=== PATIENT | male | born 1960 | race Caucasian/White ===

== ENCOUNTER 2017-11-06 17:15 | Emergency (ER) | payer MEDICARE, MEDICAID ==
[~2017-11-06] VITALS: Ht 190.5 cm; Wt 106.6 kg
[2017-11-06 18:07] LABS: BASOPHILS # (AUTO) 0.1 X10'3 (0-0.2); BASOPHILS % (AUTO) 0.7 % (0-1); EOSINOPHILS # (AUTO) 0.1 X10'3 (0-0.9); EOSINOPHILS % (AUTO) 1.8 % (0-6); HEMATOCRIT 45.4 % (42.0-52.0); HEMOGLOBIN 15.6 g/dl (14.0-17.9); LYMPHOCYTES # (AUTO) 1.7 X10'3 (1.1-4.8); LYMPHOCYTES % (AUTO) 21.1 % (21-51); MEAN CORPUSCULAR HEMOGLOBIN 31.4 PG (27.0-31.0); MEAN CORPUSCULAR HGB CONC 34.4 % (33.0-36.5); MEAN CORPUSCULAR VOLUME 91.3 FL (78-98); MEAN PLATELET VOLUME 7.5 FL (7.4-10.4); MONOCYTES # (AUTO) 0.5 X10'3 (0-0.9); MONOCYTES % (AUTO) 5.9 % (2-12); NEUTROPHILS # (AUTO) 5.8 X10'3 (1.8-7.7); NEUTROPHILS % (AUTO) 70.5 % (42-75); PLATELET COUNT 220 X10'3 (140-440); RED BLOOD COUNT 4.98 X10'6 (4.70-6.10); RED CELL DISTRIBUTION WIDTH 13.4 % (11.5-14.5); WHITE BLOOD COUNT 8.2 X10'3 (4.5-11.0)
[2017-11-06 18:19] LABS: PROTHROMBIN TIME 10.6 SECONDS (9.0-12.0)
[2017-11-06 18:24] LABS: ALANINE AMINOTRANSFERASE 76 U/L (12-78); ALBUMIN 4.1 G/DL (3.4-5.0); ALBUMIN/GLOBULIN RATIO 0.8 (1.1-1.5); ALKALINE PHOSPHATASE 84 IU/L (46-116); ANION GAP 14 (8-16); ASPARTATE AMINO TRANSFERASE 92 U/L (10-37); BLOOD UREA NITROGEN 14 MG/DL (7-18); CALCIUM 9.7 MG/DL (8.5-10.1); CHLORIDE 104 MMOL/L (99-107); CREATININE 1.17 MG/DL (0.60-1.10); GLUCOSE 138 MG/DL (70-104); POTASSIUM 3.3 MMOL/L (3.5-5.1); SODIUM 141 MMOL/L (135-145); TOTAL CARBON DIOXIDE 23.3 MMOL/L (24-32); eGFR 64 ML/MIN
[2017-11-06 19:55] LABS: CLARITY,URINE CLEAR (Clear); COLOR,URINE AMBER (Yellow); GLUCOSE, URINE NEGATIVE (Neg); KETONES,URINE NEGATIVE (Neg); LEUKOCYTE ESTERASE ,URINE TRACE (Neg); NITRITES, URINE NEGATIVE (Neg); OCCULT BLOOD,URINE NEGATIVE (Neg); PROTEIN,URINE TRACE mg/dl (Neg); UROBILINOGEN,URINE 0.2 E.U/dL (0.2-1.0)
[2017-11-06 20:26] LABS: UA COLLECTION TYPE CLN CATCH MIDSTREAM
[2017-11-06 20:45] LABS: BACTERIA,URINE FEW /HPF (Neg); HYALINE CASTS 0-3 /LPF (NEGATIVE); MUCUS STRANDS MANY /LPF (Neg); RBC,URINE 0-2 /HPF (0-2); SQUAMOUS EPITHELIAL CELL,UR FEW /LPF (FEW); WBC,URINE 0-4 /HPF (0-4)
[2017-11-06] MEDS ORDERED: normal saline 1000ML IV soln IVB ONE ×2 (22:15→22:25)
[2017-11-06] MEDS ORDERED: ondansetron/PF 4mg/2ml inj IV ONE (22:25)
[2017-11-06] MEDS ORDERED: morphine 4 MG/ML inj SYRINge IV PRN (22:25)
[2017-11-06 22:31] LABS: LIPASE 154 U/L (73-393)
[2017-11-07] MEDS ORDERED: ONDA4TAB9 SL (00:54)
[2017-11-07 00:59] VITALS: BP 157/91
[2017-11-07 10:07] LABS: C DIFF ANTIGEN NEGATIVE (NEGATIVE); C DIFF SPECIMEN=DIARRHEA? ACCEPTABLE; C DIFFICILE TOXINS A&B NEGATIVE (Neg)
== END 2017-11-07 01:10 | disposition home or self-care (01) ==
LOC: ER 17:16
DX: R10.9 Unspecified abdominal pain (principal); I11.0 Hypertensive heart disease with heart failure; I50.9 Heart failure, unspecified
CPT/HCPCS: 36415; 74018; 80053; 81001; 83690; 85025; 85610; 87077; 87088; 87186; 87324; 87449; 96361; 96374; 96375; 99285; J2270; J2405; J7030

== ENCOUNTER 2021-05-10 11:31 | Day surgery (SDC) | payer MEDICARE, MEDICAID ==
[2021-05-08 10:29] LABS: BASOPHILS % (AUTO) 0.6 % (0-1); EOSINOPHILS # (AUTO) 0.1 X10'3 (0-0.9); LYMPHOCYTES # (AUTO) 0.7 X10'3 (1.1-4.8); LYMPHOCYTES % (AUTO) 8.1 % (21-51); MEAN CORPUSCULAR HEMOGLOBIN 34.5 PG (27.0-31.0); MEAN CORPUSCULAR HGB CONC 34.3 g/dL (33.0-36.5); MEAN CORPUSCULAR VOLUME 100.7 FL (78-98); MEAN PLATELET VOLUME 7.8 FL (7.4-10.4); MONOCYTES # (AUTO) 0.3 X10'3 (0-0.9); NEUTROPHILS # (AUTO) 7.2 X10'3 (1.8-7.7); NEUTROPHILS % (AUTO) 86.3 % (42-75); PRE OP HEMATOCRIT 36.1 % (42.0-52.0); PRE OP HEMOGLOBIN 12.4 g/dL (14.0-17.9); PRE OP PLATELET COUNT 313 X10'3 (140-440); RED BLOOD COUNT 3.59 X10'6 (4.70-6.10); RED CELL DISTRIBUTION WIDTH 15.2 % (11.5-14.5)
[2021-05-08 10:30] LABS: CLARITY,URINE CLOUDY (Clear); COLOR,URINE YELLOW (Yellow); GLUCOSE, URINE 100 mg/dl (Neg); KETONES,URINE TRACE mg/dl (Neg); LEUKOCYTE ESTERASE ,URINE SMALL (Neg); NITRITES, URINE NEGATIVE (Neg); OCCULT BLOOD,URINE NEGATIVE (Neg); PH,URINE 5.5 (4.8-8.0); PROTEIN,URINE 30 mg/dl (Neg)
[2021-05-08 10:33] LABS: UA COLLECTION TYPE VOIDED
[2021-05-08 10:35] LABS: SQUAMOUS EPITHELIAL CELL,UR MODERATE /LPF (FEW)
[2021-05-08 10:36] LABS: HYALINE CASTS >30 /LPF (NEGATIVE)
[2021-05-08 10:38] LABS: WBC,URINE 20-30 /HPF (0-4)
[2021-05-08 10:39] LABS: BACTERIA,URINE 1+ /HPF (Neg); MUCUS STRANDS MODERATE /LPF (Neg); RBC,URINE 0-2 /HPF (0-2); TRANSITIONAL EPI CELLS,URINE FEW /HPF
[2021-05-08 10:43] LABS: ALBUMIN 2.8 G/DL (3.4-5.0); ALBUMIN/GLOBULIN RATIO 0.5 (1.1-1.5); ALKALINE PHOSPHATASE 117 IU/L (46-116); BLOOD UREA NITROGEN 14 MG/DL (7-18); BUN/CREATININE RATIO 8.5 (5.4-32.0); CALCIUM 7.6 MG/DL (8.5-10.1); CHLORIDE 98 MMOL/L (99-107); CREATININE 1.65 MG/DL (0.60-1.10); PRE OP ALT 51 U/L (30-65); PRE OP ANION GAP 14 (8-16); PRE OP AST 47 U/L (10-37); PRE OP GLUCOSE 107 MG/DL (70-104); PRE OP POTASSIUM 3.4 MMOL/L (3.4-5.1); PRE OP SODIUM 136 MMOL/L (135-145); TOTAL PROTEIN 8.4 G/DL (6.4-8.2); eGFR 43 ML/MIN
[~2021-05-10] VITALS: Ht 190.5 cm; Wt 109.7 kg
[2021-05-10] VITALS (9 sets, daily range): BP systolic 108–136; BP diastolic 66–82
[~2021-05-10 11:31] MED LIST: AMIT-189 PO; AMLO10TA13 PO; CHLO25TA10 PO; DOCUMENT DATE & TIME OF BETA-BLOCKER PO ONE; DULO20CA50 PO; FENO160T PO; HYDR-3972 PO; IBUP-1985 PO; LYR75C CORPAK; METO-384 PO; cefazolin/dext.iso 2gm/100ml IV ONE; famotidine 20mg tablet PO ONE; ringers solution, lacted 1,000 ML IV SCH; vancomycin 1,500 MG in NS 300ml IV soln IV ONE
[2021-05-10] MEDS ORDERED: bacitracin 15gm ointment TP ONE (12:57)
[2021-05-10] MEDS ORDERED: sevoflurane 250ml liquid IH ONE (12:59)
[2021-05-10] MEDS ORDERED: fentaNYL/PF 50MCG/1 ML 2ML syringe ONE ×2 (13:01→14:11)
[2021-05-10] MEDS ORDERED: midazolam 1 mg/ML 2ml injection ONE (13:02)
[2021-05-10] MEDS ORDERED: ketamine 50mg/5ml syringe ONE (13:26)
[2021-05-10] MEDS ORDERED: ROPIVAcaine 0.5% (5mg/ml) 30ml vial ONE (13:31)
[2021-05-10] MEDS ORDERED: meperidine/PF 25mg/ml syringe IV PRN ×3 (13:55)
[2021-05-10] MEDS ORDERED: morphine 4 MG/ML inj SYRINge IV PRN (13:55)
[2021-05-10] MEDS ORDERED: ondansetron/PF 4mg/2ml inj IV PRN (13:55)
[2021-05-10] MEDS ORDERED: proCHLORperazine 10 MG/2 ml inj IV PRN (13:55)
[2021-05-10] MEDS ORDERED: morphine 2 MG/ML inj. syringe IV PRN (13:55)
[2021-05-10] MEDS ORDERED: ringers solution, lacted 1,000 ML IV SCH (13:55)
[2021-05-10] MEDS ORDERED: propofol inj 20 ML IV ONE (14:06)
[2021-05-10] MEDS ORDERED: acetaminophen 1,000mg/100ml IV 100 ML IV ONE (14:06)
[2021-05-10] MEDS ORDERED: neostigmine methylsulfate 1 MG/ML 10ml vial ONE (14:06)
[2021-05-10] MEDS ORDERED: glycopyrrolate 0.2mg/ml inj ONE (14:06)
[2021-05-10] MEDS ORDERED: LIDOcaine 1%/PF 5ML 10 MG/ML VIAL ONE (14:06)
[2021-05-10] MEDS ORDERED: ondansetron/PF 4mg/2ml inj ONE (14:06)
[2021-05-10] MEDS ORDERED: ePHEDrine 50MG/ML INJ. ONE (14:15)
[2021-05-10] MEDS ORDERED: rocuronium 10mg/ml inj IV ONE (14:17)
--- NOTE | 2021-05-10 14:23 | NUR ---
Received from OR via , accompanied by Anesthesiologist DR WATKINS and report given by Anesthesiolgist. AWAKENS TO VOICE. VITALS STABLE. DRESSING DI. DENISES PAIN.
--- NOTE | 2021-05-10 15:33 | NUR ---
AWAKE AND ORIENTED. VITALS STABLE. DRESSING DI. MAHESH PAIN. HOME WITH A FRIEND AT THIS TIME.
== END 2021-05-10 15:33 | disposition home or self-care (01) ==
LOC: PAS 11:31
PROVIDERS: ATTEND Podiatrist Foot & Ankle Surgery
DX: E11.69 Type 2 diabetes mellitus with other specified complication (principal); M86.8X7 Other osteomyelitis, ankle and foot; L03.116 Cellulitis of left lower limb; E11.628 Type 2 diabetes mellitus with other skin complications; M19.071 Primary osteoarthritis, right ankle and foot; F32.9 Major depressive disorder, single episode, unspecified; I10 Essential (primary) hypertension; G89.18 Other acute postprocedural pain; Z20.822 Contact with and (suspected) exposure to COVID-19; Z79.899 Other long term (current) drug therapy; Z90.49 Acquired absence of other specified parts of digestive tract; Z98.1 Arthrodesis status; Z98.890 Other specified postprocedural states; Z72.89 Other problems related to lifestyle
CPT/HCPCS: 28805; 36415; 64447; 64450; 73620; 76000; 76942; 80053; 81001; 82948; 85025; 87088; 87635; 93005; A6223; C9803; J0131; J2250; J2405; J2704; J2710; J3010; Z7506; Z7508; Z7512; 88305; 88311; A4618; A6253; A6449; A7000; J2795; J3490; J7120

== ENCOUNTER 2021-11-29 08:11 | Day surgery (SDC) | payer MEDICARE, MEDICAID ==
[2021-11-26 11:27] LABS: BASOPHILS # (AUTO) 0.1 X10'3 (0-0.2); BASOPHILS % (AUTO) 0.9 % (0-1); EOSINOPHILS # (AUTO) 0.1 X10'3 (0-0.9); EOSINOPHILS % (AUTO) 1.3 % (0-6); LYMPHOCYTES # (AUTO) 1.9 X10'3 (1.1-4.8); LYMPHOCYTES % (AUTO) 26.7 % (21-51); MEAN CORPUSCULAR HEMOGLOBIN 33.6 PG (27.0-31.0); MEAN CORPUSCULAR HGB CONC 33.9 g/dL (33.0-36.5); MEAN CORPUSCULAR VOLUME 99.1 FL (78-98); MEAN PLATELET VOLUME 8.1 FL (7.4-10.4); MONOCYTES # (AUTO) 0.5 X10'3 (0-0.9); MONOCYTES % (AUTO) 7.6 % (2-12); NEUTROPHILS # (AUTO) 4.4 X10'3 (1.8-7.7); NEUTROPHILS % (AUTO) 63.5 % (42-75); PRE OP HEMATOCRIT 42.7 % (42.0-52.0); PRE OP HEMOGLOBIN 14.5 g/dL (14.0-17.9); PRE OP PLATELET COUNT 239 X10'3 (140-440); RED BLOOD COUNT 4.31 X10'6 (4.70-6.10); RED CELL DISTRIBUTION WIDTH 14.5 % (11.5-14.5)
[2021-11-26 11:29] LABS: CLARITY,URINE CLOUDY (Clear); COLOR,URINE YELLOW (Yellow); GLUCOSE, URINE NEGATIVE (Neg); KETONES,URINE TRACE mg/dl (Neg); LEUKOCYTE ESTERASE ,URINE TRACE (Neg); NITRITES, URINE NEGATIVE (Neg); OCCULT BLOOD,URINE NEGATIVE (Neg); PROTEIN,URINE TRACE mg/dl (Neg)
[2021-11-26 11:49] LABS: UA COLLECTION TYPE CLN CATCH MIDSTREAM
[2021-11-26 11:51] LABS: BACTERIA,URINE 1+ /HPF (Neg); HYALINE CASTS 0-3 /LPF (NEGATIVE); MUCUS STRANDS MANY /LPF (Neg); RBC,URINE 0-2 /HPF (0-2); SQUAMOUS EPITHELIAL CELL,UR FEW /LPF (FEW)
[2021-11-26 12:03] LABS: ALBUMIN 3.5 G/DL (3.4-5.0); ALBUMIN/GLOBULIN RATIO 0.7 (1.1-1.5); ALKALINE PHOSPHATASE 77 IU/L (46-116); BLOOD UREA NITROGEN 17 MG/DL (7-18); BUN/CREATININE RATIO 18.1 (5.4-32.0); CALCIUM 9.1 MG/DL (8.5-10.1); CHLORIDE 102 MMOL/L (99-107); CREATININE 0.94 MG/DL (0.60-1.10); PRE OP ANION GAP 11 (8-16); PRE OP AST 22 U/L (10-37); PRE OP BILIRUB, TOTAL 0.5 MG/DL (0.0-1.0); PRE OP GLUCOSE 118 MG/DL (70-104); PRE OP POTASSIUM 4.3 MMOL/L (3.4-5.1); PRE OP SODIUM 138 MMOL/L (135-145); TOTAL CARBON DIOXIDE 24.8 MMOL/L (24-32); TOTAL PROTEIN 8.5 G/DL (6.4-8.2); eGFR 82 ML/MIN
[2021-11-26 12:32] LABS: PRE OP ALT 25 U/L (30-65)
[~2021-11-29] VITALS: Ht 190.5 cm; Wt 99.8 kg
[2021-11-29] VITALS (13 sets, daily range): BP systolic 134–169; BP diastolic 73–113
[~2021-11-29 08:11] MED LIST changes: +ALLO300T35 PO; -AMIT-189 PO; -CHLO25TA10 PO; +LANS30CA37 PO; -LYR75C CORPAK; +LYR75C PO; -cefazolin/dext.iso 2gm/100ml IV ONE; +cefazolin/dext.iso 2gm/50ml IV ONE; -vancomycin 1,500 MG in NS 300ml IV soln IV ONE
[2021-11-29] MEDS ORDERED: ondansetron/PF 4mg/2ml inj IV PRN (08:50)
[2021-11-29] MEDS ORDERED: morphine 2 MG/ML inj. syringe IV PRN (08:50)
[2021-11-29] MEDS ORDERED: enalaprilat dihydrate 2.5mg/2ml vial IV PRN (08:50)
[2021-11-29] MEDS ORDERED: morphine 4 MG/ML inj SYRINge IV PRN (08:50)
[2021-11-29] MEDS ORDERED: ringers solution, lacted 1,000 ML IV SCH (08:50)
[2021-11-29] MEDS ORDERED: fentaNYL/PF 50MCG/1 ML 2ML syringe IV PRN ×2 (08:50)
[2021-11-29] MEDS ORDERED: hydrALAZINE 20mg/ml inj. IV PRN (08:50)
[2021-11-29] MEDS ORDERED: ondansetron/PF 4mg/2ml inj IV STA (10:01)
[2021-11-29] MEDS ORDERED: PHENYLephrine 10mg/ml 5ml injection IV ONE (10:11)
[2021-11-29] MEDS ORDERED: dexamethasone sod phosphate 10mg/ml inj ONE (10:11)
[2021-11-29] MEDS ORDERED: propofol 10mg/ml 20ml vial IV ONE (10:11)
[2021-11-29] MEDS ORDERED: sevoflurane 250ml liquid IH ONE (10:11)
[2021-11-29] MEDS ORDERED: MIDAZolam 1 MG/ML 5ML VIAL ONE (10:18)
[2021-11-29] MEDS ORDERED: morphine 10mg/ml inj. ONE (10:19)
[2021-11-29] MEDS ORDERED: propofol inj 20 ML IV ONE (10:28)
[2021-11-29] MEDS ORDERED: ROPIVAcaine 0.5% (5mg/ml) 30ml vial ONE (10:28)
[2021-11-29] MEDS ORDERED: LIDOcaine 2% (20mg/ml) 5ml vial ONE (10:28)
[2021-11-29] MEDS ORDERED: ondansetron/PF 4mg/2ml inj ONE (10:31)
[2021-11-29] MEDS ORDERED: bacitracin 15gm ointment TP ONE (10:48)
--- NOTE | 2021-11-29 12:00 | NUR ---
[facility] accompanied by Anesthesiologist BRAN and report given by Anesthesiolgist. PT DROWSY, OXYGENATING WELL ON 10 LPM 02 VIA MASK, NO RESP DISTRESS NOTED. DENIES NAUSEA OR PAIN AT THIS TIME. GAUZE DSG COVERED BY RAMAN BANDAGE TO R FOOT, SCANT AMOUNT OF SANGINOUS DRAINAGE. VSS, HYPERTENSIVE. WILL TREAT AND MONITOR.
--- NOTE | 2021-11-29 14:00 | NUR ---
HTN TREATED WITH HYDRALAZINE, BP WNL. VSS. TOLERATING PO FLUIDS WELL. DENIES ANY PAIN. BREAKTHROUGH SANGINOUS DRAINAGE ON R FOOT DSG. REINFORCED WITH ABD PAD AND KERLIX. PT WAS GIVEN SUPPLIES AND INSTRUCTIONS TO REINFORCE DSG PRN. ELEVATE AND ICE RLE. ADVISED PT TO CALL MD IF BLEEDING DOESNT SLOW DOWN. DC INSTRUCTIONS EXPLAINED TO PT AND HIS GIRLFRIEND, THEY VERBALIZED UNDERSTANDING. DCD IN STABLE CONDITION, TAKEN TO CAR VIA WC.
[2021-12-08] MEDS ORDERED: SULF1TAB45 PO (13:24)
== END 2021-11-29 14:00 | disposition home or self-care (01) ==
LOC: PAS 08:11
PROVIDERS: ATTEND Podiatrist Foot & Ankle Surgery
DX: T84.84XA Pain due to internal orthopedic prosthetic devices, implants and grafts, initial encounter (principal); E11.69 Type 2 diabetes mellitus with other specified complication; M86.8X7 Other osteomyelitis, ankle and foot; M19.071 Primary osteoarthritis, right ankle and foot; I10 Essential (primary) hypertension; M10.9 Gout, unspecified; K21.9 Gastro-esophageal reflux disease without esophagitis; G89.18 Other acute postprocedural pain; Z79.899 Other long term (current) drug therapy; Z20.822 Contact with and (suspected) exposure to COVID-19; Z90.49 Acquired absence of other specified parts of digestive tract; Z98.890 Other specified postprocedural states; Z72.89 Other problems related to lifestyle; Y83.8 Other surgical procedures as the cause of abnormal reaction of the patient, or of later complication, without mention of misadventure at the time of the procedure; Y92.89 Other specified places as the place of occurrence of the external cause
CPT/HCPCS: 20680; 28810; 36415; 64447; 64450; 73620; 76000; 80053; 81001; 82948; 85025; 87088; 87635; 93005; A6223; C9803; J0360; J0690; J1100; J2250; J2274; J2370; J2405; J2704; J2795; J3490; J7030; J7120; Z7506; Z7508; Z7512; A4618; A6253; A6449; A7000

== ENCOUNTER 2021-11-30 15:10 | Emergency (ER) | payer MEDICARE, MEDICAID ==
[~2021-11-30] VITALS: Ht 190.5 cm; Wt 98.2 kg
[~2021-11-30 15:10] MED LIST changes: -DOCUMENT DATE & TIME OF BETA-BLOCKER PO ONE; -cefazolin/dext.iso 2gm/50ml IV ONE; -famotidine 20mg tablet PO ONE; -ringers solution, lacted 1,000 ML IV SCH
--- NOTE | 2021-11-30 17:00 | NUR ---
removed old bloody wrap off of R foot, rewrapped with 2 surgicel foam gauze,4x4's, cobain, kerlix, and julian wrap. Pt states new wrap feels secure.
[2021-11-30 17:31] VITALS: BP 140/97
[2021-12-08] MEDS ORDERED: SULF1TAB45 PO (13:24)
== END 2021-11-30 17:34 | disposition home or self-care (01) ==
LOC: ER 15:11
DX: M96.830 Postprocedural hemorrhage of a musculoskeletal structure following a musculoskeletal system procedure (principal); I11.0 Hypertensive heart disease with heart failure; I50.9 Heart failure, unspecified; G89.29 Other chronic pain; Z72.89 Other problems related to lifestyle; Z98.890 Other specified postprocedural states; Z79.899 Other long term (current) drug therapy
CPT/HCPCS: 99284

== ENCOUNTER 2024-04-22 12:46 | Outpatient (CLI) | payer MEDICARE, MEDICAID ==
[~2024-04-22 12:46] MED LIST changes: +SULF1TAB45 PO
== END 2024-04-22 23:59 | disposition home or self-care (01) ==
LOC: RAD 12:46
PROVIDERS: ATTEND Podiatrist Foot & Ankle Surgery
DX: Z13.1 Encounter for screening for diabetes mellitus (principal); M19.071 Primary osteoarthritis, right ankle and foot; E55.9 Vitamin D deficiency, unspecified; M25.471 Effusion, right ankle
CPT/HCPCS: 73700

== ENCOUNTER 2024-05-05 17:07 | Emergency (ER) | payer MEDICARE, MEDICAID ==
[~2024-05-05] VITALS: Ht 190.5 cm; Wt 113.6 kg
[2024-05-05 17:09] VITALS: TEMP 98.8
[2024-05-05 20:01] VITALS: BP 153/96; PULSE 77; RESP 16; O2SAT 92
== END 2024-05-05 20:02 | disposition home or self-care (01) ==
LOC: ER 17:08
DX: S93.491A Sprain of other ligament of right ankle, initial encounter (principal); I11.0 Hypertensive heart disease with heart failure; I50.9 Heart failure, unspecified; G89.29 Other chronic pain; M54.9 Dorsalgia, unspecified; Z98.890 Other specified postprocedural states; Z72.89 Other problems related to lifestyle; Z79.899 Other long term (current) drug therapy; X58.XXXA Exposure to other specified factors, initial encounter; Y93.89 Activity, other specified; Y92.89 Other specified places as the place of occurrence of the external cause; Y99.8 Other external cause status
CPT/HCPCS: 73610; 99283; A6449

== ENCOUNTER 2024-12-21 17:50 | Emergency (ER) | payer MEDICARE, MEDICAID ==
[~2024-12-21] VITALS: Ht 190.5 cm; Wt 118.0 kg
[2024-12-21] MEDS ORDERED: ketorolac trometh 15mg/ml vial 15 MG/ML ML IV ONE (18:15)
[2024-12-21 19:08] LABS: ALBUMIN 3.7 G/DL (3.4-5.0); ANION GAP 11 (8-16); BLOOD UREA NITROGEN 19 MG/DL (7-18); BUN/CREATININE RATIO 14.5 (10.0-20.0); CALCIUM 9.1 MG/DL (8.5-10.1); CHLORIDE 104 MMOL/L (99-107); CREATININE 1.31 MG/DL (0.60-1.10); GLUCOSE 110 MG/DL (70-104); POTASSIUM 3.8 MMOL/L (3.5-5.1); SODIUM 139 MMOL/L (135-145); TOTAL CARBON DIOXIDE 23.7 MMOL/L (24-32); eCRCL 68 ML/MIN; eGFR 55 ML/MIN
[2024-12-21] MEDS: ketorolac trometh 15mg/ml vial 15 MG/ML ML IM ONE (19:14)
[2024-12-21 19:26] LABS: BASOPHILS # (AUTO) 0.1 X10'3 (0-0.2); BASOPHILS % (AUTO) 0.7 % (0-1); EOSINOPHILS # (AUTO) 0.1 X10'3 (0-0.9); EOSINOPHILS % (AUTO) 1.7 % (0-6); HEMATOCRIT 42.5 % (42.0-52.0); HEMOGLOBIN 14.9 g/dl (14.0-17.9); LYMPHOCYTES # (AUTO) 1.7 X10'3 (1.1-4.8); LYMPHOCYTES % (AUTO) 23.9 % (21-51); MEAN CORPUSCULAR HEMOGLOBIN 33.4 PG (27.0-31.0); MEAN CORPUSCULAR HGB CONC 35.1 g/dL (33.0-36.5); MEAN PLATELET VOLUME 8.5 FL (7.4-10.4); MONOCYTES # (AUTO) 0.5 X10'3 (0-0.9); MONOCYTES % (AUTO) 6.5 % (2-12); NEUTROPHILS # (AUTO) 4.9 X10'3 (1.8-7.7); NEUTROPHILS % (AUTO) 67.2 % (42-75); PLATELET COUNT 192 X10'3 (140-440); RED BLOOD COUNT 4.48 X10'6 (4.70-6.10); WHITE BLOOD COUNT 7.3 X10'3 (4.5-11.0)
[2024-12-21] MEDS ORDERED: HYDR-3965 PO (19:54)
[2024-12-21 20:21] VITALS: BP 135/61; PULSE 75; RESP 16; TEMP 97.5; O2SAT 99
== END 2024-12-21 20:28 | disposition home or self-care (01) ==
LOC: ER 17:51
DX: S22.31XA Fracture of one rib, right side, initial encounter for closed fracture (principal); I11.0 Hypertensive heart disease with heart failure; I50.9 Heart failure, unspecified; X58.XXXA Exposure to other specified factors, initial encounter; Y93.89 Activity, other specified; Y92.89 Other specified places as the place of occurrence of the external cause; Y99.8 Other external cause status
CPT/HCPCS: 36415; 71100; 80048; 85025; 96372; 99284; J1885

== ENCOUNTER 2025-03-20 10:35 | Emergency (ER) | payer MEDICARE, MEDICAID ==
[~2025-03-20] VITALS: Ht 190.5 cm; Wt 113.6 kg
[2025-03-20 10:42] VITALS: BP 149/102; PULSE 70; RESP 18; TEMP 98.3; O2SAT 97
[2025-03-20] MEDS ORDERED: CLOT21CR7 TOP (10:54)
--- NOTE | 2025-03-20 10:56 | Physician Documentation ---
History of Present Illness ~ Chief Complaint: Wound Stated Complaint: WOUND ON FOOT Time Seen by MD: 10:48 Primary Medical Doctor: omkar WILLIAMSON 65-year-old male presents to the ED with a complaint of a rash on the inside of his left. Patient states he has not ongoing wound which he has taken antibiotic for on the pad of his previous amputated great toe patient states he is prediab etic. Denies any fevers denies any increased pain Day of Onset of Wound: Mar 20, 2025 Tetanus within 5 years?: Yes Medication Reconciliation Allergies: Coded Allergies: No Known Allergies (Unverified , 03/20/25) Scheduled Allopurinol (Allopurinol), 1 TAB PO DAILY, (Reported) Amlodipine Besylate (Amlodipine Besylate), 1 TAB PO DAILY, (Reported) Clotrimazole (Clotrimazole 3), 1 APPLICATOR TOP HS Duloxetine Hcl* (Cymbalta*), 2 CAP PO DAILY, (Reported) Fenofibrate (Fenofibrate), 1 TAB PO DAILY, (Reported) Lansoprazole (Prevacid), 1 CAP PO DAILY, (Reported) Metoprolol Succinate (Metoprolol Succinate), 1 TAB PO DAILY, (Reported) Sulfamethoxazole/Trimethoprim (Septra Ds Tab), 1 TAB PO BID, (Reported) Scheduled PRN Hydrocodone Bit/Acetaminophen (Hydrocodon-Acetaminophn 10-325 tablet), 1 TAB PO Q6H PRN for pain, (Reported) Ibuprofen (Ibuprofen), 1 TAB PO TID PRN for pain, (Reported) Pregabalin (LYRICA capsule), 150 MG PO TID PRN for pain, (Reported) Past Medical History Past Medical History: Congestive Heart Failure, Hypertension, Chronic Back Pain Past Surgical History: no surgical history, other Alcohol Use: Occasionally Drug Use: none Lives In: Home Physical Exam Vital Signs: Temperature: 98.3, Source: Temporal, Heart Rate: 70, Respiratory Rate: 18, BP: 149/102, Pulse Oximetry: 97, Weight: 113.640 Oxygen Flow Rate: 0 Physical Exam General: Alert, no apparent distress. Extremities: Normal range of motion, no deformity. rash medial aspect right foot Neurologic: Oriented x4. Psychiatric: Normal mood and affect. Skin: Normal color, warm and dry. No edema, no ecchymosis. Progress Results/Orders Results/Orders Completed Orders - ZELDA FRAGA NP Terbinafine Cream (Lamisil Cream) (03/20/25 10:50) Medications Received in ER Medications (Trade) Dose Ordered Sig/Slim Route PRN Reason Start Time Stop Time Status Last Admin Dose Admin (LamISIL Cream) 1 applic NOW TP 03/20/25 10:50 03/20/25 11:15 DC 03/20/25 10:58 1 APPLIC Vital Signs 03/20/25 10:42 Temp 98.3 Pulse 70 Resp 18 B/P (MAP) 149/102 Pulse Ox 97 O2 Flow Rate 0 Departure Disposition: 01 HOME / SELF CARE / HOMELESS Impression: Primary Impression: Fungal skin infection Condition: Stable Referrals: NO PRIMARY CARE PROVIDER (PCP) Prescriptions Clotrimazole (Clotrimazole 3) 2 % Cream.appl 1 APPLICATOR TOP HS for 3 Days, #21 GM 0 Refills Prov: ZELDA FRAGA CAREER SERVICES ASSISTANT 03/20/25 Education Educated: Patient Educated regarding: diagnosis Signature Scribe Signature: h Attestation: Scribed for Zelda Fraga Senior Technical Trainer by Zelda Fraga - KASI . 03/20/25 18:27 ZELDA FRAGA NP Mar 20, 2025 10:55
[2025-03-20] MEDS: terbinafine cream 30gm TP SCH (10:58)
== END 2025-03-20 11:15 | disposition home or self-care (01) ==
LOC: ER 10:35
DX: L08.89 Other specified local infections of the skin and subcutaneous tissue (principal); I11.0 Hypertensive heart disease with heart failure; I50.9 Heart failure, unspecified; Z79.899 Other long term (current) drug therapy; Z72.89 Other problems related to lifestyle
CPT/HCPCS: 99282

== ENCOUNTER 2025-04-17 15:48 | Emergency (ER) | payer MEDICARE, MEDICAID ==
[~2025-04-17] VITALS: Ht 190.5 cm; Wt 110.3 kg
[~2025-04-17 15:48] MED LIST changes: +CLOT21CR7 TOP; -IBUP-1985 PO; +IBUP600T52 PO
[2025-04-17 15:56] VITALS: BP 134/94; PULSE 68; RESP 18; TEMP 97.8; O2SAT 97
[2025-04-17] MEDS ORDERED: POTASSIUM CHLORIDE 20 MEQ/15 ML oral solution PO SCH (16:00)
--- NOTE | 2025-04-17 16:08 | Physician Documentation ---
History of Present Illness ~ General Chief Complaint: Abnormal Lab(s) Stated Complaint: TRANSFER FROM [facility] Time Seen by MD: 16:00 Primary Medical Doctor: omkar Medication Reconciliation Allergies: Coded Allergies: No Known Allergies (Unverified , 04/17/25) Scheduled Allopurinol (Allopurinol), 1 TAB PO DAILY, (Reported) Amlodipine Besylate (Amlodipine Besylate), 1 TAB PO DAILY, (Reported) Clotrimazole (Clotrimazole 3), 1 APPLICATOR TOP HS Duloxetine Hcl* (Cymbalta*), 2 CAP PO DAILY, (Reported) Fenofibrate (Fenofibrate), 1 TAB PO DAILY, (Reported) Lansoprazole (Prevacid), 1 CAP PO DAILY, (Reported) Metoprolol Succinate (Metoprolol Succinate), 1 TAB PO DAILY, (Reported) Sulfamethoxazole/Trimethoprim (Septra Ds Tab), 1 TAB PO BID, (Reported) Scheduled PRN Hydrocodone Bit/Acetaminophen (Hydrocodon-Acetaminophn 10-325 tablet), 1 TAB PO Q6H PRN for pain, (Reported) Ibuprofen (Ibuprofen), 1 TAB PO TID PRN for pain, (Reported) Pregabalin (LYRICA capsule), 150 MG PO TID PRN for pain, (Reported) Past Medical History Past Medical History: Congestive Heart Failure, Hypertension, Chronic Back Pain Past Surgical History: no surgical history, other Alcohol Use: Occasionally Drug Use: none Lives In: Home Physical Exam Physical Exam Vital Signs: Temperature: 97.8, Source: Temporal, Heart Rate: 68, Respiratory Rate: 18, BP: 134/94, Pulse Oximetry: 97, Weight: 110.350 Progress Results/Orders Results/Orders Orders - ANNE MARIE OLEARY Potassium Cl 20meq/15ml Oral (Potassium (04/17/25 16:00) Vital Signs 04/17/25 15:56 Temp 97.8 Pulse 68 Resp 18 B/P (MAP) 134/94 Pulse Ox 97 Departure Disposition: 07 LEFT AWOL/ELOPED Referrals: NO PRIMARY CARE PROVIDER (PCP) ANNE MARIE OLEARYP Apr 17, 2025 16:08
== END 2025-04-17 16:07 | disposition left against medical advice (07) ==
LOC: ER 15:49
DX: R78.89 Finding of other specified substances, not normally found in blood (principal); I11.0 Hypertensive heart disease with heart failure; I50.9 Heart failure, unspecified
CPT/HCPCS: 99282

== ENCOUNTER 2025-04-19 12:17 | Emergency (ER) | payer MEDICARE, MEDICAID ==
[~2025-04-19] VITALS: Ht 190.5 cm; Wt 110.0 kg
[2025-04-19 12:29] VITALS: TEMP 97.9
--- NOTE | 2025-04-19 12:40 | ELECTROCARDIOGRAPH REPORT ---
[facility] Test Date: 2025-04-19 Test Time: 12:38:35 Pat Name: ELENA LAZARO Department: EMERGENCY ROOM Room: Gender: M Planning Management It Specialist: : 1960 Requested By: ZELDA FRAGA Order Number: [id number] Reading MD: Measurements Intervals [place] Rate: 96 P: -34 MT: 166 QRS: -19 QRSD: 94 T: 39 QT: 349 QTc: 441 Interpretive Statements Sinus rhythm Abnormal R-wave progression, early transition Left ventricular hypertrophy Please click the below link to view image of tracing.
[2025-04-19 12:56] LABS: MEAN PLATELET VOLUME 7.7 FL (7.4-10.4); RED CELL DISTRIBUTION WIDTH 14.6 % (11.5-14.5)
--- NOTE | 2025-04-19 13:15 | RADIOLOGY REPORT ---
CHEST RADIOGRAPH Indication: CP Technique: Single frontal view of the chest was obtained Comparison: DI RIBS,UNILAT on DOS: 12/21/24, CHEST,SINGLE VIEW on DOS: 12/07/21 FINDINGS: Lines and Tubes: None Lungs: No focal consolidation. Pleura: No effusion. No pneumothorax. Cardiomediastinal contours: Unremarkable Bones: No acute osseous abnormality. A neurostimulator is noted with the generator overlying the left mid chest wall and the wires extending cephalad of the left neck with the distal end not visualized. Cervical fixation hardware is noted. IMPRESSION: No acute cardiopulmonary disease.
[2025-04-19 13:22] LABS: CREATININE 1.33 MG/DL (0.60-1.10); PRO BRAIN NATRIURETIC PEPTIDE 59 PG/ML (0-125); TOTAL CARBON DIOXIDE 24.5 MMOL/L (24-32); eCRCL 66 ML/MIN; eGFR 54 ML/MIN
--- NOTE | 2025-04-19 13:59 | Physician Documentation ---
History of Present Illness General Chief Complaint: Abnormal Lab(s) Stated Complaint: POTASSIUM DEFICIENCY Time Seen by MD: 13:38 Primary Medical Doctor: omkar History of Present Illness Initial Comments The patient is a 65-year-old man who has had wound care and asked to come here because his potassium from two days ago was 3.0. He is not taking supplemental potassium. Medication Reconciliation Allergies: Coded Allergies: No Known Allergies (Unverified , 04/17/25) Scheduled Allopurinol (Allopurinol), 1 TAB PO DAILY, (Reported) Amlodipine Besylate (Amlodipine Besylate), 1 TAB PO DAILY, (Reported) Clotrimazole (Clotrimazole 3), 1 APPLICATOR TOP HS Duloxetine Hcl* (Cymbalta*), 2 CAP PO DAILY, (Reported) Fenofibrate (Fenofibrate), 1 TAB PO DAILY, (Reported) Lansoprazole (Prevacid), 1 CAP PO DAILY, (Reported) Metoprolol Succinate (Metoprolol Succinate), 1 TAB PO DAILY, (Reported) Sulfamethoxazole/Trimethoprim (Septra Ds Tab), 1 TAB PO BID, (Reported) Scheduled PRN Hydrocodone Bit/Acetaminophen (Hydrocodon-Acetaminophn 10-325 tablet), 1 TAB PO Q6H PRN for pain, (Reported) Ibuprofen (Ibuprofen), 1 TAB PO TID PRN for pain, (Reported) Pregabalin (LYRICA capsule), 150 MG PO TID PRN for pain, (Reported) Past Medical History Past Medical History: Congestive Heart Failure, Hypertension, Chronic Back Pain Past Surgical History: no surgical history, other Smoking: Non-Smoker Alcohol Use: Occasionally Drug Use: none Lives In: Home Review of Systems ROS Constitutional: Denies chills, fatigue, fever, weight gain or weight loss. HEENT: Denies hearing loss, sinus pressure or visual changes. Respiratory: Denies cough, shortness of breath or wheezing. Cardiovascular: Denies chest pain, pain while walking (claudication), edema or palpitations. Gastrointestinal: Denies abdominal pain, blood in stool, constipation, diarrhea, heartburn, loss of appetite, nausea or vomiting. Genitourinary: Denies painful urination (dysuria), excessive amount of urine (polyuria) or urinary frequency. Metabolic/Endocrine: Denies cold intolerance, heat intolerance, excessive thirst (polydipsia) or excessive hunger (polyphagia). Neurological: Denies dizziness, extremity numbness, extremity weakness, headaches, seizures or tremors. Psychiatric: Denies anxiety or depression. Integumentary: Denies breast discharge, breast lump, hives, mole change(s), rash or skin lesion. Musculoskeletal: Denies back pain, joint pain, joint swelling or neck pain. Hematologic: Denies easily bleeding, easily bruises, lymphedema or issues with blood clots. Immunologic: Denies food allergies or seasonal allergies. Physical Exam Physical Exam Vital Signs: Temperature: 97.9, Heart Rate: 82, Respiratory Rate: 17, BP: 138/92, Pulse Oximetry: 99, Weight: 110.000 Oxygen Flow Rate: 0 Physical Exam Physical Exam Vitals and nursing note reviewed. Constitutional: General: Patient is awake, alert, oriented x 4 in no acute distress and well appearing. Speech is clear and lucid. Appearance: Normal appearance. Patient is not ill-appearing, toxic-appearing or diaphoretic. HENT: Head: Normocephalic and atraumatic. Mouth/Throat: Mouth: Mucous membranes are moist. Pharynx: Oropharynx is clear. Eyes: General: No scleral icterus. Extraocular Movements: Extraocular movements intact. Pupils: Pupils are equal, round, and reactive to light. Neck: Supple, no Kernig or Brudzinski sign. Cardiovascular: Rate and Rhythm: Normal rate and regular rhythm. Heart sounds: No murmur heard. Pulmonary: Effort: No respiratory distress. Breath sounds: No wheezing, rhonchi or rales. Abdominal: General: There is no distension. Palpations: There is no fluid wave, hepatomegaly or mass. Tenderness: There is no abdominal tenderness. There is no guarding. Musculoskeletal: General: No swelling or deformity. Skin: Coloration: Skin is not jaundiced. Findings: No erythema or rash. Neurological: Mental Status: Patient is alert. Progress Results/Orders Results/Orders Completed Orders - YESSENIA FERNÁNDEZ MD Potassium Cl Sr Tablet (K-Dur Tablet) (04/19/25 13:54) Vital Signs 04/19/25 04/19/25 12:29 13:50 Temp 97.9 Pulse 91 82 Resp 18 17 B/P (MAP) 140/96 138/92 (107) Pulse Ox 98 99 O2 Flow Rate 0 Laboratory Tests Test 04/19/25 12:42 White Blood Count 8.5 Red Blood Count 4.55 L Hemoglobin 15.1 Hematocrit 43.4 Mean Corpuscular Volume 95.3 Mean Corpuscular Hemoglobin 33.3 H Mean Corpuscular Hemoglobin Concent 34.9 Red Cell Distribution Width 14.6 H Platelet Count 295 Mean Platelet Volume 7.7 Neutrophils (%) (Auto) 52.2 Lymphocytes (%) (Auto) 38.3 Monocytes (%) (Auto) 7.3 Eosinophils (%) (Auto) 1.3 Basophils (%) (Auto) 0.9 Neutrophils # (Auto) 4.4 Lymphocytes # (Auto) 3.2 Monocytes # (Auto) 0.6 Eosinophils # (Auto) 0.1 Basophils # (Auto) 0.1 CBC Comment Sodium Level 140 Potassium Level 3.0 *L Chloride Level 101 Carbon Dioxide Level 24.5 Anion Gap 15 Blood Urea Nitrogen 22 H Creatinine 1.33 H Estimated GFR/1.73 m2 54 BUN/Creatinine Ratio 16.5 Glucose Level 106 H Calcium Level 8.9 Troponin I High Sensitivity 11 Pro-B-Type Natriuretic Peptide 59 Albumin 4.0 Chemistry Comments Medical Decision Making Findings EKG medically necessary in the evaluation of hypokalemia and interpreted by me at the time of patient evaluation. Rhythm is sinus rhythm with a rate of 96, LVH., abnormal R-wave progression, early transition Impression: Abnormal EKG. ECG reading does not show any acute signs of obvious ischemia. No evidence of A- V block. No short GA, delta waves, or wide QRS concerning for Rzxfk-Hpvorevts-Wzgsq. No long QT events on my read. I do not see evidence of Brugada with ST elevations in V1 through V3. No epsilon wave noted. No low voltage suggestive of pericardial effusion. No right ventricular strain pattern. The patient's potassium level was 3.02 days ago. I am giving him 40 mEq orally here and I will send a prescription. Departure Disposition: HOME / SELF CARE / HOMELESS Impression: Primary Impression: Hypokalemia Condition: Stable Additional Instructions: It is important to see your doctor or primary care provider. Emergency care may be incomplete without proper follow-up. Symptoms sometimes change or new symptoms might arise after you leave the emergency department. It is important that you call your doctor if you become worse in any way, or return to the emergency department. You are strongly urged to follow-up with your physician to assure complete and thorough care. Please call your doctor's office today, and informed them that you were seen in the emergency department, and that you need to be seen immediately for close follow-up. If you do not have a primary care doctor we encourage you to proactively seek a local physician for close follow-up. Consider local clinics, [facility], or local [facility]. Prior to discharge we spoke at length concerning symptoms that would merit reevaluation, but please return to the emergency department for any symptoms that are concerning to you, and we will be happy to continue your evaluation and treatment. Please note you can always return to the emergency department if you are having difficulty coordinating close follow-up. If medications were prescribed, you should fill them at your local pharmacy immediately and take only as prescribed. Bring your new medications to your doctors follow-up visit to discuss any changes that would be necessary. Please check [facility] for any results you did not receive in the Emergency Department: often we are unable to get all your tests back before you leave, and these tests need to be reviewed by your PCP and yourself. You can also call Medical Records if you are unable to access the internet to see [facility]. Return to the emergency department immediately for worsening chest pain, difficulty breathing, sweating, or other concerning emergent symptoms. Referrals: NO PRIMARY CARE PROVIDER (PCP) Prescriptions Potassium Chloride* (Potassium Chloride*) 10 Meq Capsule.sa 1 CAP PO BIDAC for 30 Days, #30 CAP Prov: YESSENIA FERNÁNDEZ MD 04/19/25 Education Educated: Patient Educated regarding: diagnosis, treatment, prognosis Signature Scribe Signature: . Attestation: . YESSENIA FERNÁNDEZ MD Apr 19, 2025 13:59
[2025-04-19] MEDS ORDERED: POTA10CA95 PO (14:14)
[2025-04-19 14:26] VITALS: BP 136/98; PULSE 83; O2SAT 99
[2025-04-19] MEDS: potassium Cl 20 mEq SR tablet PO STA (14:26)
[2025-04-19 14:35] VITALS: RESP 15
== END 2025-04-19 14:37 | disposition home or self-care (01) ==
LOC: ER 12:18
DX: E87.6 Hypokalemia (principal); I11.0 Hypertensive heart disease with heart failure; I50.9 Heart failure, unspecified; Z79.899 Other long term (current) drug therapy; Z72.89 Other problems related to lifestyle
CPT/HCPCS: 36415; 71045; 80048; 83880; 84484; 85025; 93005; 99285

== ENCOUNTER 2025-06-01 12:05 | Outpatient (CLI) | payer MEDICARE, MEDICAID ==
--- NOTE | 2025-06-01 15:38 | RADIOLOGY REPORT ---
CLINICAL INFORMATION: Rule out osteomyelitis. Chronic ulcer of left foot. TECHNIQUE: Axial CT images of the left foot were obtained without IV contrast. Coronal and sagittal reformatted images were obtained, reviewed, and stored. All CT scans at this medical facility are performed using dose modulation techniques as appropriate to a performed exam including the following: Automated exposure control was utilized; adjustment of the MA and/or KV according to patient size; and use of iterative reconstruction technique. CTDIvol = 14.5 mGy DLP = 376.73 mGy-cm COMPARISON: DI FOOT, COMPLETE (3VW MIN) on DOS: 04/17/25, DI ANKLE, COMPLETE(3VW MIN) on DOS: 05/05/24, CT CT LOWER EXTREMITY on DOS: 04/22/24 FINDINGS: Postsurgical changes of prior transmetatarsal amputation. There is prominent soft tissue edema at the amputation stump and wound at the medial aspect of the amputation stump, probable cellulitis in the appropriate clinical setting. Likely ill-defined fluid. Limited evaluation for abscess on noncontrast enhanced exam. Abscess can not be excluded. No definite erosive changes are seen to suggest osteomyelitis. There is a chronic ununited avulsion fracture at the anterior process of the calcaneus. There is spurring at the calcaneal tuberosity at the Achilles tendon insertion. There is mild plantar calcaneal spurring. There is osseous spurring at the dorsal aspect of the talar head and adjacent portions of the navicular. IMPRESSION: 1. Wound at the medial aspect of the amputation stump with adjacent subcutaneous edema, possible cellulitis and/or phlegmon. Limited evaluation for abscess on noncontrast enhanced exam. 2. No erosive changes or cortical destruction are seen to suggest osteomyelitis. If there remains clinical concern for osteomyelitis, MRI could be considered. 3. Additional findings as described above.
== END 2025-06-01 23:59 | disposition home or self-care (01) ==
LOC: RAD 12:05
PROVIDERS: ATTEND Podiatrist Foot & Ankle Surgery
DX: S98.912D Complete traumatic amputation of left foot, level unspecified, subsequent encounter (principal); S90.922D Unspecified superficial injury of left foot, subsequent encounter; L97.529 Non-pressure chronic ulcer of other part of left foot with unspecified severity; Z89.022 Acquired absence of left finger(s); M77.32 Calcaneal spur, left foot; X58.XXXD Exposure to other specified factors, subsequent encounter
CPT/HCPCS: 73700

== ENCOUNTER 2025-06-19 14:39 | Emergency (ER) | payer MEDICARE, MEDICAID ==
[~2025-06-19] VITALS: Ht 190.5 cm; Wt 122.6 kg
[2025-06-19 14:57] VITALS: BP 137/99; PULSE 82; RESP 18; TEMP 97.6; O2SAT 97
--- NOTE | 2025-06-19 15:32 | Physician Documentation ---
History of Present Illness ~ Chief Complaint: Shoulder pain Stated Complaint: SHOULDER PAIN Time Seen by MD: 15:03 Primary Medical Doctor: omkar WILLIAMSON 65-year-old male who presents to the emergency department with left trapezium pain he reports his acute on chronic in nature and resolves with trigger point injections. He wonders if he can receive trigger point injection in the em ergency department. Specifically reports the efficacy of Botox be in the best. No loss of function or sensory to the left upper extremities. This is an old worker's injury where he was crushed by a piece of iron. He is grossly neurologically intact. Tetanus within 5 years?: Yes Medication Reconciliation Allergies: Coded Allergies: No Known Allergies (Unverified , 06/19/25) Scheduled Allopurinol (Allopurinol), 1 TAB PO DAILY, (Reported) Amlodipine Besylate (Amlodipine Besylate), 1 TAB PO DAILY, (Reported) Clotrimazole (Clotrimazole 3), 1 APPLICATOR TOP HS Duloxetine Hcl* (Cymbalta*), 2 CAP PO DAILY, (Reported) Fenofibrate (Fenofibrate), 1 TAB PO DAILY, (Reported) Lansoprazole (Prevacid), 1 CAP PO DAILY, (Reported) Metoprolol Succinate (Metoprolol Succinate), 1 TAB PO DAILY, (Reported) Sulfamethoxazole/Trimethoprim (Septra Ds Tab), 1 TAB PO BID, (Reported) Scheduled PRN Hydrocodone Bit/Acetaminophen (Hydrocodon-Acetaminophn 10-325 tablet), 1 TAB PO Q6H PRN for pain, (Reported) Ibuprofen (Ibuprofen), 1 TAB PO TID PRN for pain, (Reported) Pregabalin (LYRICA capsule), 150 MG PO TID PRN for pain, (Reported) Past Medical History Past Medical History: Congestive Heart Failure, Hypertension, Chronic Back Pain Past Surgical History: no surgical history, other Alcohol Use: Occasionally Drug Use: none Lives In: Home Review of Systems All Other Systems at this time: Reviewed and Negative Musculoskeletal: Reports: pain, muscle stiffness Physical Exam Vital Signs: RN Vital Signs have been reviewed: Yes, Temperature: 97.6, Source: Oral, Heart Rate: 82, Respiratory Rate: 18, BP: 137/99, Pulse Oximetry: 97, Weight: 122.600 Oxygen Flow Rate: 0 General Appearance: alert, WD/WN, mild distress EENT: PERRL/EOMI Neck: normal inspection Respiratory: no respiratory distress Chest: normal inspection Shoulder: no evidence of injury, soft tissue tenderness (Tenderness over the for trigger points of the left trapezium including occipital) Procedures Trigger Point Injection Injected: lidocaine Amount Injected: 4 cc Needle Size: 27 Patient Relief: moderate Tolerated Procedure Well?: yes, no complications Procedure Note Patient prepped and draped. Received 4 times 1 cc 1% lidocaine injections. At 1 minute 30% relief at 5 minutes 60% relief. Discharged grossly logically intact. Progress Results/Orders Results/Orders Orders - LISA GOZNALEZ Lidocaine 1% 30ml Vial (Xylocaine 1% Via (06/19/25 15:27) Vital Signs 06/19/25 14:57 Temp 97.6 Pulse 82 Resp 18 B/P (MAP) 137/99 Pulse Ox 97 O2 Flow Rate 0 Medical Decision Making Additional information obtaine: family Findings Examination history consistent with trigger point spasms of left trapezium. Discussed the risks alternatives benefits of trigger-point injections. Patient is provided verbal consent. Please see procedure note. No complications. Ricarda brunerrge to primary care with recommendations for orthopedic follow up. Differential Dx:Considerations: Unlikely: Adhesive capsulitis, arthritis, Dislocation Additional Comments Above differentials unlikely due to past medical history and clinical exam specific to trigger point pain. Departure Disposition: 01 HOME / SELF CARE / HOMELESS Impression: Primary Impression: Trigger point with back pain Discharge Instructions: Trigger Point Injection Additional Instructions: Today in the emergency department you received four trigger point injections. Please follow up with the orthopedist for consideration of additional therapy that may include Botox therapy and/or steroid trigger point injection. Thank you for visiting [facility]. Referrals: NO PRIMARY CARE PROVIDER (PCP) Education Educated: Patient, Family Educated regarding: diagnosis, treatment, prognosis, need for follow up Signature Scribe Signature: . Attestation: . LISA GONZALEZ Jun 19, 2025 15:32
[2025-06-19] MEDS: LIDOcaine 1% 30ml preserv. free vial IJ STA (15:42)
== END 2025-06-19 16:07 | disposition home or self-care (01) ==
LOC: ER 14:40
DX: M25.512 Pain in left shoulder (principal); M79.10 Myalgia, unspecified site; I11.0 Hypertensive heart disease with heart failure; I50.9 Heart failure, unspecified; G89.29 Other chronic pain; Z79.899 Other long term (current) drug therapy; Z72.89 Other problems related to lifestyle
CPT/HCPCS: 20552; 99284